=== PATIENT | female | born 1950 | race Caucasian/White ===

== ENCOUNTER → 2020-09-20 | Outpatient (CLI) | payer OTHER | LOC: KOH-I 09:58 | DX: R51.9 Headache, unspecified (principal); G31.9 Degenerative disease of nervous system, unspecified; R93.0 Abnormal findings on diagnostic imaging of skull and head, not elsewhere classified | CPT/HCPCS: 70450 ==

== ENCOUNTER → 2021-01-13 | Outpatient (CLI) | payer OTHER | LOC: LAB 10:49 | PROVIDERS: Physician Assistant Medical | DX: E03.9 Hypothyroidism, unspecified (principal); E78.2 Mixed hyperlipidemia; E83.42 Hypomagnesemia; F51.01 Primary insomnia; I10 Essential (primary) hypertension | CPT/HCPCS: 80053; 83735 ==

== ENCOUNTER → 2021-01-16 | Outpatient (CLI) | payer OTHER | LOC: KOH-I 14:45 | DX: M79.604 Pain in right leg (principal) | CPT/HCPCS: 93925 ==

== ENCOUNTER → 2021-05-16 | Outpatient (CLI) | payer OTHER ==
[2021-05-16 09:40] LABS: RED BLOOD COUNT 4.31 M/UL (4.00-5.10); WHITE BLOOD COUNT 7.6 K/UL (4.5-11.0)
== END ==
LOC: LAB 09:15
PROVIDERS: Physician Assistant Medical
DX: E03.9 Hypothyroidism, unspecified (principal); E78.2 Mixed hyperlipidemia; E83.42 Hypomagnesemia; E87.1 Hypo-osmolality and hyponatremia; F51.01 Primary insomnia
CPT/HCPCS: 36415; 80053; 80061; 83735; 84443; 85025